=== PATIENT | male | born 1955 | race Caucasian/White ===

== ENCOUNTER 2017-03-23 12:55 | Emergency (ER) | payer MEDICARE ==
[~2017-03-23 12:55] MED LIST: ALBUTEROL IN200 PUFF INH; CARAFATE1 GM PO; COMBIVENT RESPIM4 GM INH; LASIX20 MG PO; LEVAQUIN750 MG PO; LYRICA200 MG PO; METHADONE HCL10 MG PO; MUCINEX1200 MG PO; NICODERM 21MG PA1 EA TD; OXYCONTIN15 MG PO; PAIN RELIEF650 MG PO; PREDNISONE10 MG PO; PRILOSEC40 MG PO; TESSALON PERLE100 MG PO; ZESTRIL10 MG PO; ZOCOR40 MG PO
== END 2017-03-23 13:43 | disposition home or self-care (01) ==
LOC: ER 12:55
DX: J06.9 Acute upper respiratory infection, unspecified (principal); H92.02 Otalgia, left ear; J02.9 Acute pharyngitis, unspecified; F17.210 Nicotine dependence, cigarettes, uncomplicated; I10 Essential (primary) hypertension; J44.9 Chronic obstructive pulmonary disease, unspecified; M54.9 Dorsalgia, unspecified; Z79.891 Long term (current) use of opiate analgesic; Z79.899 Other long term (current) drug therapy
CPT/HCPCS: 99282; 99283